=== PATIENT | female | born 1955 | race Caucasian/White ===

== ENCOUNTER 2019-11-13 08:28 | Day surgery (SDC) | payer BC ==
[2019-11-08 09:55] LABS: BASOPHILS # (AUTO) 0.1 X10'3 (0-0.2); BASOPHILS % (AUTO) 1.1 % (0-1); EOSINOPHILS # (AUTO) 0.2 X10'3 (0-0.9); EOSINOPHILS % (AUTO) 3.3 % (0-6); LYMPHOCYTES # (AUTO) 1.8 X10'3 (1.1-4.8); LYMPHOCYTES % (AUTO) 31.3 % (21-51); MEAN CORPUSCULAR HEMOGLOBIN 30.3 PG (27.0-31.0); MEAN CORPUSCULAR HGB CONC 33.9 g/dL (33.0-36.5); MEAN CORPUSCULAR VOLUME 89.5 FL (78-98); MONOCYTES # (AUTO) 0.7 X10'3 (0-0.9); MONOCYTES % (AUTO) 11.6 % (2-12); NEUTROPHILS % (AUTO) 52.7 % (42-75); PRE OP HEMATOCRIT 44.3 % (35.0-45.0); PRE OP PLATELET COUNT 209 X10'3 (140-440); RED BLOOD COUNT 4.95 X10'6 (4.20-5.60); RED CELL DISTRIBUTION WIDTH 13.4 % (11.5-14.5)
[2019-11-08 10:09] LABS: ALBUMIN 3.7 G/DL (3.4-5.0); ALBUMIN/GLOBULIN RATIO 1.2 (1.1-1.5); ALKALINE PHOSPHATASE 63 IU/L (46-116); BLOOD UREA NITROGEN 17 MG/DL (7-18); BUN/CREATININE RATIO 24.6 (6.6-38.0); CALCIUM 8.7 MG/DL (8.5-10.1); CHLORIDE 105 MMOL/L (99-107); CREATININE 0.69 MG/DL (0.40-0.90); PRE OP ALT 27 U/L (30-65); PRE OP ANION GAP 5 (8-16); PRE OP AST 29 U/L (10-37); PRE OP BILIRUB, TOTAL 0.5 MG/DL (0.0-1.0); PRE OP GLUCOSE 82 MG/DL (70-104); PRE OP POTASSIUM 4.2 MMOL/L (3.4-5.1); PRE OP SODIUM 140 MMOL/L (135-145); TOTAL CARBON DIOXIDE 29.7 MMOL/L (24-32); TOTAL PROTEIN 6.9 G/DL (6.4-8.2); eGFR 86 ML/MIN
[~2019-11-13] VITALS: Ht 160 cm; Wt 56.7 kg
[2019-11-13] VITALS (14 sets, daily range): BP systolic 111–129; BP diastolic 65–74
[~2019-11-13 08:28] MED LIST: BUPIVAcaine/PF 2.5 mg/ml (0.25%) 30ml vial ONE; CALC-336 PO; LEVO88TA2 PO; LIDOcaine 1% 30ml preserv. free vial ONE; [UNRECOGNIZED DRUG - OTHER] PO; clindamycin-Cleocin 900mg/D5W 50 ML IV ONE; famotidine 20mg tablet PO ONE; ringers solution, lacted 1,000 ML IV SCH
[2019-11-13] MEDS ORDERED: ringers solution, lacted 1,000 ML IV SCH (08:54)
[2019-11-13] MEDS ORDERED: hydrALAZINE 20mg/ml inj. IV PRN (08:55)
[2019-11-13] MEDS ORDERED: labetalol 20mg/4ml (5mg/ml) syringe IV PRN (08:55)
[2019-11-13] MEDS ORDERED: ondansetron/PF 4mg/2ml inj IV PRN (08:55)
[2019-11-13] MEDS ORDERED: fentaNYL/PF 50MCG/1 ML 2ML syringe IV PRN ×2 (08:55)
[2019-11-13] MEDS ORDERED: morphine 2 MG/ML inj. syringe IV PRN (08:55)
[2019-11-13] MEDS ORDERED: morphine 4 MG/ML inj SYRINge IV PRN (08:55)
[2019-11-13] MEDS ORDERED: sevoflurane 250ml liquid IH ONE (10:30)
[2019-11-13] MEDS ORDERED: neostigmine methylsulfate 1 MG/ML 10ml vial ONE (10:30)
[2019-11-13] MEDS ORDERED: dexamethasone sod phosphate 10mg/ml inj ONE (10:30)
[2019-11-13] MEDS ORDERED: glycopyrrolate 0.2mg/ml inj ONE (10:30)
[2019-11-13] MEDS ORDERED: rocuronium 10mg/ml inj IV ONE (10:40)
[2019-11-13] MEDS ORDERED: fentaNYL/PF 50MCG/1 ML 2ML syringe ONE (10:40)
[2019-11-13] MEDS ORDERED: dexamethasone sod phosphate 4mg/ml inj. ONE (10:40)
[2019-11-13] MEDS ORDERED: propofol inj 20 ML IV ONE (10:40)
[2019-11-13] MEDS ORDERED: LIDOcaine 2% (20mg/ml) 5ml vial ONE (10:40)
[2019-11-13] MEDS ORDERED: ondansetron/PF 4mg/2ml inj ONE (10:40)
--- NOTE | 2019-11-13 12:25 | NUR ---
Received from OR via [facility], accompanied by Anesthesiologist ALEJANDRA and report given by Anesthesiolgist. PT SLEEPY, OXYGENATING WELL ON 10 LPM O2 VIA MASK, NO RESP DISTRESS NOTED. PT DENIES NAUSEA OR PAIN AT THIS TIME. 3 ABD TROCAR SITES COVERED WITH LG BANDAIDS, CDI. VSS. PT IS BRADYCARDIC, INTO THE 30'S. DR FIGUEROA SAYS THIS IS NORMAL FOR THE PT.
[2019-11-13] MEDS ORDERED: HYDROcodone/acetaminophen 5mg/325mg tablet PO PRN (12:45)
[2019-11-13] MEDS ORDERED: ketorolac trometh. 30mg/ml inj. IV ONE (14:15)
[2019-11-13] MEDS ORDERED: acetaminophen 1,000mg/100ml IV 100 ML IV ONE (14:15)
--- NOTE | 2019-11-13 14:40 | NUR ---
PT WAS VERY SLOW TO AWAKEN, HAD ZOFRAN GIVEN FOR NAUSEA. PT IS PAINFUL BUT DECLINING NARCOTICS. DR FIGUEROA ORDERED IV TYLENOL AND TORADOL, GIVEN. AMBULATED WITH SBA, VOIDED A SMALL AMOUNT. DC INSTRUCTIONS EXPLAINED TO PT, SHE VERBALIZED UNDERSTANDING. DCD IN STABLE CONDITION, TAKEN TO CAR VIA WC.
== END 2019-11-13 14:40 | disposition home or self-care (01) ==
LOC: PAS 08:28
PROVIDERS: ATTEND Surgery
DX: K40.90 Unilateral inguinal hernia, without obstruction or gangrene, not specified as recurrent (principal); Z11.59 Encounter for screening for other viral diseases; Z79.899 Other long term (current) drug therapy; E03.9 Hypothyroidism, unspecified; Z98.890 Other specified postprocedural states; Z88.0 Allergy status to penicillin; Z80.42 Family history of malignant neoplasm of prostate; Z80.59 Family history of malignant neoplasm of other urinary tract organ
CPT/HCPCS: 36415; 49650; 80053; 82948; 85025; 93005; C1781; J0131; J1100; J1885; J2001; J2405; J2704; J2710; J3010; J3490; J7120; S2900; U0003; A4215; A4618